=== PATIENT | male | born 1965 | race Caucasian/White ===

== ENCOUNTER → 2019-02-04 | Outpatient (CLI) | payer BC ==
--- NOTE | 2019-02-04 11:30 | US ---
EXAMINATION TYPE: US prostate transrectal DATE OF EXAM: 02/04/2019 COMPARISON: NONE CLINICAL HISTORY: R97.20 elevated PSA. Elevated PSA This examination was performed using the transrectal probe. EXAM MEASUREMENTS: Gland Size: 5.3 x 3.6 x 5.8cm Volume: 57.3ml Predicted PSA: 6.87 Actual PSA (if available):4.3 Enlarged heterogeneous gland with 0.7 x 0.6 x 0.8cm hypoechoic area seen left base. IMPRESSION: Enlarged heterogenous prostate gland containing an 8 mm hypoechoic lesion of the left la teral prostate base. This could be further evaluated with biopsy or prostate MR. Predicted PSA = volume x 0.12 ng/ml Calculated Volume = 0.5236 x L x W x H
== END | disposition home or self-care (01) ==
LOC: RADUSWWP 09:59
PROVIDERS: ATTEND Internal Medicine
DX: N40.0 Benign prostatic hyperplasia without lower urinary tract symptoms (principal)
CPT/HCPCS: 76872

== ENCOUNTER → 2019-07-05 | Outpatient (CLI) | payer BC ==
--- NOTE | 2019-07-05 11:00 | ECHOF ---
Referral Reason:I51.7 Cardiomegaly MEASUREMENTS -------- HEIGHT: 180.3 cm WEIGHT: 102.1 kg BP: RVIDd: 3.2 cm (< 3.3) IVSd: 1.4 cm (0.6 - 1.1) LVIDd: 3.6 cm (3.9 - 5.3) LVPWd: 1.6 cm (0.6 - 1.1) IVSs: 1.8 cm LVIDs: 1.9 cm LVPWs: 2.0 cm Ao Diam: 3.5 cm (2.0 - 3.7) AV Cusp: 2.1 cm (1.5 - 2.6) LA Diam: 2.6 cm (2.7 - 3.8) MV EXCURSION: 22.907 mm (> 18.000) MV EF SLOPE: 125 mm/s (70 - 150) EPSS: 0.4 cm MV E Rene: 0.66 m/s MV DecT: 223 ms MV A Rene: 0.73 m/s MV E/A Ratio: 0.91 RAP: 5.00 mmHg RVSP: 13.29 mmHg FINDINGS -------- Sinus rhythm. This was a technically difficult study with suboptimal views. The left ventricular size is normal. There is moderate concentric left ventricular hypertrophy. O verall left ventricular systolic function is low-normal with, an EF between 50 - 55 %. The right ventricle is normal in size. Right side appears enlarged. The left atrial size is normal. The right atrial size is normal. Lumason used The aortic valve was not well visualized. The mitral valve is normal. There is trace mitral regurgitation. The tricuspid valve was not well visualized. Trace tricuspid regurgitation present. Right ventric ular systolic pressure is normal at < 35 mmHg. The pulmonic valve was not well visualized. There is no pulmonic regurgitation present. The aortic root size is normal. IVC Not well visulized. There is no pericardial effusion. CONCLUSIONS -------- 1. Sinus rhythm. 2. This was a technically difficult study with suboptimal views. 3. The left ventricular size is normal. 4. There is moderate concentric left ventricular hypertrophy. 5. Overall left ventricular systolic function is low-normal with, an EF between 50 - 55 %. 6. Right side appears enlarged. 7. The left atrial size is normal. 8. Lumason used 9. The aortic valve was not well visualized. 10. The mitral valve is normal. 11. There is trace mitral regurgitation. 12. Trace tricuspid regurgitation present. 13. There is no pulmonic regurgitation present. 14. The aortic root size is normal. 15. IVC Not well visulized. 16. There is no pericardial effusion. REVENUE COORDINATOR: Luz Evangelista RDCS
--- NOTE | 2019-07-05 11:54 | ECHOS ---
STRESS ECHOCARDIOGRAM DATE OF SERVICE: 07/05/2019 INDICATIONS: Cardiomegaly. MEDICATIONS: Percocet, Lamictal. BASELINE HEART RATE: 75 BASELINE BLOOD PRESSURE: 126/74 MAXIMUM HEART RATE: 147 MAXIMUM BLOOD PRESSURE: 155/79 85% MPHR: 143 100% MPHR: 168 METS: 11.7 MAXIMUM STAGE REACHED: IV TOTAL EXERCISE TIME: 10 minutes CLINICAL INFORMATION: Baseline rhythm is sinus mechanism, rate 75, normal axis and intervals. Normal electrocardiogram. Baseline blood pressure 126/74 mmHg. Patient exercised on Jose Angel protocol for 10 minutes reaching peak rate of 147 beats per minute which is equal to 87% maximum predicted heart rate. Peak blood pressure 155/79 mmHg Test was terminated secondary to fatigue. There was no chest pain. Electrocardiograph monitoring revealed no evidence of diagnostic ischemic ST deviation. Baseline echocardiogram revealed normal wall motion. At peak exercise, there was normal wall motion augmentation with no hypokinesis or dyskinesis. CONCLUSION: 1. Good exercise tolerance with normal electrocardiograph response to exercise. 2. Normal stress echocardiogram with no evidence of stress induced ischemia. MMODL / IJN: [id number] /
== END | disposition home or self-care (01) ==
LOC: RADNMMAIN 09:36
PROVIDERS: ATTEND Internal Medicine
DX: I51.7 Cardiomegaly (principal)
CPT/HCPCS: 93306; 93351; Q9950

== ENCOUNTER 2023-08-03 11:50 | Emergency (ER) | payer BC ==
[2023-08-03 12:06] VITALS: RESP 18; TEMP 97.9
[2023-08-03] MEDS ORDERED: ONDANSETRON 4 MG/2 ML VIAL IVP STA (12:41)
--- NOTE | 2023-08-03 12:47 | ED ---
Dizziness HPI - General Chief Complaint: Syncope Stated Complaint: Syncope Time Seen by Provider: 08/03/23 12:05 Source: patient, EMS Mode of arrival: EMS Limitations: no limitations - History of Present Illness Initial Comments: 58-year-old male presents to the emergency department after he had a syncopal episode. Patient was at [employer] when he started to feel extremely hot. He got up and went out to the vestibule. His significant other came up to join him. Patient got up to leave the [employer] and ended up having a near syncopal episode. Patient went down and landed on his right knee. He denies fully losing consciousness. No head injury. Patient did not eat breakfast. His sugar was normal. He does admit to headache without visual changes. Admits nausea without vomiting. Denies any chest pain or shortness of breath. No abdominal pain. No other alleviating, precipitating modifying factors - Related Data Allergies Allergy/AdvReac Type Severity Reaction Status Date / Time No Known Allergies Allergy Verified 08/03/23 11:59 Review of Systems ROS Statement: Those systems with pertinent positive or pertinent negative responses have been documented in the HPI. ROS Other: All systems not noted in ROS Statement are negative. Past Medical History Past Medical History: No Reported History History of Any Multi-Drug Resistant Organisms: None Reported Additional Past Surgical History / Comment(s): B/L knee, B/L elbow, B/L shoulder Past Psychological History: No Psychological Hx Reported Smoking Status: Never smoker Past Alcohol Use History: Rare Past Drug Use History: None Reported General Exam Limitations: no limitations General appearance: alert, in no apparent distress Head exam: Present: atraumatic, normocephalic, normal inspection Eye exam: Present: normal appearance, PERRL, EOMI. Absent: scleral icterus, conjunctival injection, periorbital swelling ENT exam: Present: normal exam, mucous membranes moist Neck exam: Present: normal inspection. Absent: tenderness, meningismus, lymphadenopathy Respiratory exam: Present: normal lung sounds bilaterally. Absent: respiratory distress, wheezes, rales, rhonchi, stridor Cardiovascular Exam: Present: regular rate, normal rhythm, normal heart sounds. Absent: systolic murmur, diastolic murmur, rubs, gallop, clicks GI/Abdominal exam: Present: soft, normal bowel sounds. Absent: distended, tenderness, guarding, rebound, rigid Extremities exam: Present: normal inspection, full ROM, normal capillary refill. Absent: tenderness, pedal edema, joint swelling, calf tenderness Back exam: Present: normal inspection Neurological exam: Present: alert, oriented X3, CN II-XII intact Psychiatric exam: Present: normal affect, normal mood Skin exam: Present: warm, dry, intact, normal color. Absent: rash Course Vital Signs 08/03/23 08/03/23 08/03/23 11:55 12:00 12:30 Temperature 97.9 F Pulse Rate 76 76 76 Pulse Rate [ Account Service Representative ] Respiratory 18 18 18 Rate Blood Pressure 112/67 112/67 112/67 Blood Pressure [Left Arm] Blood Pressure [Right Arm Supine] O2 Sat by Pulse 98 97 96 Oximetry 08/03/23 08/03/23 08/03/23 13:30 14:00 14:36 Temperature Pulse Rate 69 71 Pulse Rate [ 65 Account Service Representative ] Respiratory 18 18 Rate Blood Pressure 81/59 123/79 Blood Pressure 113/76 [Left Arm] Blood Pressure 113/76 [Right Arm Supine] O2 Sat by Pulse 99 96 Oximetry 08/03/23 14:37 Temperature Pulse Rate Pulse Rate [ 77 Account Service Representative ] Respiratory 18 Rate Blood Pressure Blood Pressure 113/77 [Left Arm] Blood Pressure [Right Arm Supine] O2 Sat by Pulse Oximetry Medical Decision Making - Medical Decision Making Was pt. sent in by a medical professional or institution (, [facility], [facility] [employer], urgent care, hospital, or group home...) When possible be specific @ -No Did you speak to anyone other than the patient for history (EMS, parent, family, police, friend...)? What history was obtained from this source @ -No Did you review nursing and triage notes (agree or disagree)? Why? @ -I reviewed and agree with nursing and triage notes Were old charts reviewed (outside hosp., previous admission, EMS record, old EKG, old radiological studies, urgent care reports/EKG's, group home records)? Report findings @ -No old charts were reviewed Differential Diagnosis (chest pain, altered mental status, abdominal pain women, abdominal pain men, vaginal bleeding, weakness, fever, dyspnea, syncope, headache, dizziness, GI bleed, back pain, seizure, CVA, palpatations, mental health, musculoskeletal)? @ -Differential Syncope: Valvular disease, hypertrophic cardiomyopathy, pulmonary embolism, tamponade, tachycardia, bradycardia, VT, hypovolemia, hemorrhage, dissection, anemia, intracranial hemorrhage, seizure, hypoglycemia, carbon monoxide poisoning, this is not meant to be an all-inclusive list. EKG interpreted by me (3pts min.). @ -Yes and demonstrates sinus rhythm with a rate of 72. [place] interval 199. QRS 113. QTc of 424. No acute ST segment elevation or depression X-rays interpreted by me (1pt min.). @ -Yes and demonstrates no acute process CT interpreted by me (1pt min.). @ -Yes and demonstrates no acute process U/S interpreted by me (1pt. min.). @ -None done What testing was considered but not performed or refused? (CT, X-rays, U/S, labs)? Why? @ -None What meds were considered but not given or refused? Why? @ -None Did you discuss the management of the patient with other professionals (professionals i.e. , PA, [employer], lab, RT, psych nurse, forensic social worker, nut feeder, teacher, truant officer, rn case manager hospice)? Give summary @ -No Was smoking cessation discussed for >3mins.? @ -No Was critical care preformed (if so, how long)? @ -No Were there social determinants of health that impacted care today? How? (Homelessness, low income, unemployed, alcoholism, drug addiction, transportation, low edu. Level, literacy, decrease access to med. care, fci, rehab)? @ -No Was there de-escalation of care discussed even if they declined (Discuss DNR or withdrawal of care, Hospice)? DNR status @ -No What co-morbidities impacted this encounter? (DM, HTN, Smoking, COPD, CAD, Cancer, CVA, ARF, Chemo, Hep., AIDS, mental health diagnosis, sleep apnea, morbid obesity)? @ -None Was patient admitted / discharged? Hospital course, mention meds given and route, prescriptions, significant lab abnormalities, going to OR and other pertinent info. @ -Upon arrival patient was placed into room 7. Thorough history and physical exam was performed. IV access was established. Laboratory studies are conducted. Chest x-ray and CT brain are performed. Upon return the results are discussed the patient. Patient is adamantly wanting to go home at this time. I did offer overnight observation for syncope however he refused. Patient is instructed to increase oral intake. Follow-up with his doctor return for any new or worsening symptoms Undiagnosed new problem with uncertain prognosis? @ -Yes Drug Therapy requiring intensive monitoring for toxicity (Heparin, Nitro, Insulin, Cardizem)? @ -No Were any procedures done? @ -No Diagnosis/symptom? @ -Acute near syncope Acute, or Chronic, or Acute on Chronic? @ -Acute Uncomplicated (without systemic symptoms) or Complicated (systemic symptoms)? @ -Complicated Side effects of treatment? @ -No Exacerbation, Progression, or Severe Exacerbation? @ -No Poses a threat to life or bodily function? How? (Chest pain, USA, VT, pneumonia, PE, COPD, DKA, ARF, appy, cholecystitis, CVA, Diverticulitis, Homicidal, Suicidal, threat to staff... and all critical care pts) @ -No - Lab Data Result diagrams: 08/03/23 12:47 08/03/23 12:47 Lab Results 08/03/23 08/03/23 08/03/23 Range/Units 12:47 12:47 12:47 WBC 7.1 (3.8-10.6) k/uL RBC 4.22 L (4.30-5.90) m/uL Hgb 13.8 (13.0-17.5) gm/dL Hct 38.8 L (39.0-53.0) % MCV 91.9 (80.0-100.0) fL MCH 32.7 (25.0-35.0) pg MCHC 35.6 (31.0-37.0) g/dL RDW 12.6 (11.5-15.5) % Plt Count 227 (150-450) k/uL MPV 7.6 Neutrophils % 71 % Lymphocytes % 19 % Monocytes % 5 % Eosinophils % 3 % Basophils % 1 % Neutrophils # 5.0 (1.3-7.7) k/uL Lymphocytes # 1.4 (1.0-4.8) k/uL Monocytes # 0.3 (0-1.0) k/uL Eosinophils # 0.2 (0-0.7) k/uL Basophils # 0.1 (0-0.2) k/uL Sodium 140 (137-145) mmol/L Potassium 3.5 (3.5-5.1) mmol/L Chloride 107 (98-107) mmol/L Carbon Dioxide 21 L (22-30) mmol/L Anion Gap 12 mmol/L BUN 15 (9-20) mg/dL Creatinine 0.85 (0.66-1.25) mg/dL Est GFR (CKD-EPI)AfAm >90 (>60 ml/min/1.73 sqM) Est GFR (CKD-EPI)NonAf >90 (>60 ml/min/1.73 sqM) Glucose 106 H (74-99) mg/dL Calcium 8.5 (8.4-10.2) mg/dL Total Bilirubin 0.5 (0.2-1.3) mg/dL AST 21 (17-59) U/L ALT 19 (4-49) U/L Alkaline Phosphatase 66 (38-126) U/L Troponin I <0.012 (0.000-0.034) ng/mL Total Protein 6.3 (6.3-8.2) g/dL Albumin 3.8 (3.5-5.0) g/dL Disposition Clinical Impression: Syncope, Orthostatic hypotension, Cephalgia Disposition: HOME SELF-CARE Condition: Stable Instructions (If sedation given, give patient instructions): Syncope (ED), Hypotension (ED) Additional Instructions: Please follow-up with the cardiology office in regards to today's episode. Stay hydrated. Return to the emergency department for any new or worsening symptoms Is patient prescribed a controlled substance at d/c from ED?: No Referrals: Sharri Brock MD [Primary Care Provider] - 1-2 days Time of Disposition: 14:54
[2023-08-03] MEDS: SODIUM CHLORIDE 0.9% 1,000 ML IV ONE (12:50)
[2023-08-03] MEDS: SODIUM CHLORIDE 0.9% 1,000 ML IV STA (12:50)
[2023-08-03 13:02] LABS: Basophils # (A) 0.1 k/uL (0-0.2); Basophils % (A) 1 %; Eosinophils # (A) 0.2 k/uL (0-0.7); Eosinophils % (A) 3 %; HCT 38.8 % (39.0-53.0); HGB 13.8 gm/dL (13.0-17.5); Lymphocytes # (A) 1.4 k/uL (1.0-4.8); Lymphocytes % (A) 19 %; MCH 32.7 pg (25.0-35.0); MCHC 35.6 g/dL (31.0-37.0); MCV 91.9 fL (80.0-100.0); Mean Platelet Volume 7.6; Monocytes # (A) 0.3 k/uL (0-1.0); Monocytes % (A) 5 %; Neutrophils % (A) 71 %; Platelet Count 227 k/uL (150-450); RBC 4.22 m/uL (4.30-5.90); RDW 12.6 % (11.5-15.5); WBC 7.1 k/uL (3.8-10.6)
[2023-08-03 13:26] LABS: ALT 19 U/L (4-49); AST 21 U/L (17-59); African American GFR (CKD) >90 (>60 ml/min/1.73 sqM); Albumin 3.8 g/dL (3.5-5.0); Alkaline Phosphatase 66 U/L (38-126); Anion Gap 12 mmol/L; Blood Urea Nitrogen 15 mg/dL (9-20); Calcium 8.5 mg/dL (8.4-10.2); Carbon Dioxide 21 mmol/L (22-30); Chloride 107 mmol/L (98-107); Glucose 106 mg/dL (74-99); Non-African American GFR(CKD) >90 (>60 ml/min/1.73 sqM); Potassium 3.5 mmol/L (3.5-5.1); Sodium 140 mmol/L (137-145); Total Bilirubin 0.5 mg/dL (0.2-1.3); Total Protein 6.3 g/dL (6.3-8.2)
[2023-08-03] MEDS: ONDANSETRON 4 MG/2 ML VIAL IVP STA (13:33)
[2023-08-03] MEDS: MORPHINE SULFATE 4 MG/ML SYRINGE IVP STA (13:33)
--- NOTE | 2023-08-03 14:03 | XR ---
EXAMINATION TYPE: XR chest 2V DATE OF EXAM: 08/03/2023 1:02 PM CLINICAL INDICATION:Male, 58 years old with history of Cough/pain; [facility] COMPARISON: None. TECHNIQUE: XR chest 2V Frontal and lateral views of the chest. FINDINGS: Lungs/Pleura: Subtle hazy opacities are noted within the left retrocardiac region. No evidence of ple ural effusion or pneumothorax Pulmonary vascularity: Unremarkable. Heart/mediastinum: Cardiomediastinal silhouette is unremarkable. Musculoskeletal: No acute osseous pathology. IMPRESSION: Left lung base airspace disease, may represent developing infection/inflammatory process.
--- NOTE | 2023-08-03 14:06 | CT ---
EXAMINATION TYPE: CT brain wo con DATE OF EXAM: 08/03/2023 COMPARISON: None INDICATION: syncope, headache DLP: 1240.1 mGycm, Automated exposure control for dose reduction was used. CONTRAST: None CT of the brain is performed utilizing 3 mm thick sections through the posterior fossa and 3 mm thick sections through the remaining calvarium. Study is performed within 24 hours of arrival to the hosp ital. No abnormal hyperdensity is present to suggest an acute intracranial hemorrhage. No mass lesion is evident. No acute infarcts are evident. Some subtle hypointensity is within the insular regions bilaterally. T his may be chronic in nature. MRI with contrast can be performed for additional evaluation some hypod ensity may be within the parietal-occipital regions. Ventricles and sulci are appropriate for the patient age. Paranasal sinuses and mastoid air cells within the [id number] are clear. IMPRESSION: 1. Nonspecific white matter changes. Follow-up with MRI can be performed for additional evaluation.
[2023-08-03] MEDS: diphenhydrAMINE 50 MG/ML 1 ML VIAL IVP STA (14:23)
[2023-08-03] MEDS: METOCLOPRAMIDE 5 MG/ML 2 ML VIAL IVP STA (14:23)
[2023-08-03] MEDS: KETOROLAC 15 MG/ML 1 ML VIAL IVP STA (14:23)
[2023-08-03 14:43] VITALS: BP 113/77; PULSE 77
== END 2023-08-03 15:15 | disposition home or self-care (01) ==
LOC: EC 11:50
DX: I95.1 Orthostatic hypotension (principal); R51.9 Headache, unspecified; I25.2 Old myocardial infarction
CPT/HCPCS: 99285 ×2; 96374 ×2; 96375 ×5; 36415; 93005; 80053; 84484; 85025; 71046; 70450; J2270; J1200; J2765; J2405; J1885